=== PATIENT | female | born 2000 | race American Indian/Alaskan Native ===

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

== ENCOUNTER 2022-03-27 14:00 | Emergency (ER) | payer MEDICAID, OTHER ==
[2022-03-27] MEDS ORDERED: Sodium Chloride 0.9% 10 ML Syringe FLUSH PRN (14:29)
[2022-03-27] MEDS ORDERED: Sodium Chloride 0.9% 1,000 ML IV ONE (14:30)
[2022-03-27 16:37] VITALS: BP 100/59; PULSE 78
== END 2022-03-27 17:43 | disposition home or self-care (01) ==
LOC: JP.ED 14:00
DX: O20.0 Threatened abortion (principal); Z3A.14 14 weeks gestation of pregnancy
CPT/HCPCS: 36415; 76815; 80048; 84703; 85025; 85610; 85730; 86850; 86900; 86901; 99282; 99284-25

== ENCOUNTER 2022-06-19 11:44 | Emergency (ER) | payer MEDICAID ==
[2022-06-19 12:03] VITALS: BP 111/71; PULSE 81
== END 2022-06-19 12:49 | disposition home or self-care (01) ==
LOC: JP.ED 11:44
DX: Z03.823 Encounter for observation for suspected inserted (injected) foreign body ruled out (principal)
CPT/HCPCS: 99283

== ENCOUNTER 2022-09-16 19:30 | Emergency (ER) | payer MEDICAID ==
[2022-09-16] MEDS ORDERED: Sodium Chloride 0.9% 10 ML Syringe FLUSH PRN (20:38)
[2022-09-16] MEDS ORDERED: Lactated Ringers 1,000 ML IV SCH (20:45)
[2022-09-16 21:41] LABS: ESTIMATED GFR 94 mL/min (>60)
[2022-09-16 22:12] LABS: CORONAVIRUS COVID-19 NAA NEGATIVE (NEGATIVE)
[2022-09-16] MEDS ORDERED: Acetaminophen 325 MG Tab PO ONE (22:24)
[2022-09-16] MEDS ORDERED: Clindamycin Phosphate in D5W 900 MG in Premix Bag 1 BAG IV ONE ×2 (22:30)
[2022-09-17] MEDS ORDERED: Sodium Chloride 0.9% 1,000 ML IV SCH ×2 (00:30→04:00)
[2022-09-17] MEDS: Ampicillin 2 GM in Sodium Chloride 0.9% 100 ML IV SCH ×2 (00:47→06:48)
[2022-09-17 07:06] VITALS: BP 103/53; PULSE 103
== END 2022-09-17 07:30 ==
LOC: JP.ED 19:30
DX: A41.9 Sepsis, unspecified organism (principal); N71.0 Acute inflammatory disease of uterus; R65.21 Severe sepsis with septic shock; Z20.822 Contact with and (suspected) exposure to COVID-19
CPT/HCPCS: 0241U; 36415; 76801; 80053; 81001; 83605; 84702; 85025; 86850; 86900; 86901; 96361; 96365; 96366; 96367; 99285; A9270; J0290; J1580; J3490; J7030; J7120

== ENCOUNTER 2024-02-03 22:37 | Emergency (ER) | payer MEDICAID ==
[2024-02-03 23:21] VITALS: BP 118/83; PULSE 105
[2024-02-03] MEDS ORDERED: Sodium Chloride 0.9% 1,000 ML IV ONE (23:57)
[2024-02-04 00:16] LABS: BASOPHILS ABSOLUTE AUTO 0.05 K/uL (0.00-0.10); BASOPHILS PERCENT AUTO 0.4 % (0.1-1.3); EOSINOPHILS PERCENT AUTO 0.1 % (0.0-5.4); HEMATOCRIT 41.3 % (34.3-46.0); HEMOGLOBIN 13.3 g/dL (11.2-15.5); IMMATURE GRAN ABSOLUTE AUTO 0.05 K/uL (0.00-0.23); IMMATURE GRAN PERCENT AUTO 0.4 % (0.0-0.7); LYMPHOCYTES ABSOLUTE AUTO 2.34 K/uL (0.8-3.3); LYMPHOCYTES PERCENT AUTO 17.3 % (11.4-47.7); MEAN CORPUSCULAR HEMOGLOBIN 26.1 pg (31.6-35.5); MEAN CORPUSCULAR HGB CONC 32.2 g/dL (31.6-35.5); MEAN CORPUSCULAR VOLUME 81.1 fL (81.4-99.0); MONOCYTES ABSOLUTE AUTO 1.43 K/uL (0.20-0.90); MONOCYTES PERCENT AUTO 10.6 % (3.3-12.6); NEUTROPHILS ABSOLUTE AUTO 9.63 K/uL (1.0-7.6); NEUTROPHILS PERCENT AUTO 71.2 % (40.0-78.1); PLATELET COUNT,PLT 221 K/uL (130-375); RED BLOOD CELL COUNT 5.09 M/uL (3.77-5.24); WHITE BLOOD CELL COUNT,WBC 13.5 K/uL (3.2-11.0)
[2024-02-04 00:19] LABS: EOSINOPHILS ABSOLUTE AUTO 0.01 K/uL (0.00-0.40)
[2024-02-04 00:35] LABS: A/G RATIO 0.8 (1.2-2.2); ALANINE AMINOTRANSFERASE,ALT 80 U/L (12-78); ALBUMIN 3.7 g/dL (3.4-5.0); ALKALINE PHOSPHATASE 70 U/L (46-116); ASPARTATE AMNIOTRANSFERASE,AST 32 U/L (15-37); BILIRUBIN TOTAL 0.3 mg/dL (0.2-1.0); BLOOD UREA NITROGEN,BUN 9 mg/dL (7-18); CALCIUM 8.9 mg/dL (8.5-10.1); CARBON DIOXIDE,CO2 24 mmol/L (21-32); CHLORIDE,CL 98 mmol/L (100-108); CREATININE 0.8 mg/dL (0.6-1.0); EST CRCL DRUG DOSING (CG) 96.06 mL/min; ESTIMATED GFR 107 mL/min (>60); GLUCOSE RANDOM 105 mg/dL (74-106); POTASSIUM,K 3.5 mmol/L (3.6-5.2); PROTEIN TOTAL,TP 8.5 g/dL (6.4-8.2); SODIUM,NA 133 mmol/L (140-148)
[2024-02-04 00:38] LABS: ANION GAP 14.5 mmol/L (5.0-14.0)
[2024-02-04 00:55] LABS: CORONAVIRUS COVID-19 NAA NEGATIVE (NEGATIVE); INFLUENZA A NAA NEGATIVE (NEGATIVE); INFLUENZA B NAA NEGATIVE (NEGATIVE); RESPIRATORY SYNCYTIAL VIR NAA NEGATIVE (NEGATIVE)
[2024-02-04] MEDS: Ketorolac 30 MG/ML SDV IM ONE (01:13)
[2024-02-04] MEDS: Penicillin G Benzathine 1,200,000 Units/2 ML Syringe IM ONE (01:48)
== END 2024-02-04 02:02 | disposition home or self-care (01) ==
LOC: JP.ED 22:37
DX: J02.0 Streptococcal pharyngitis (principal); F17.210 Nicotine dependence, cigarettes, uncomplicated
CPT/HCPCS: 0241U; 36415; 80053; 85025; 87651; 96372; 99283; 99284; J0561; J1885

== ENCOUNTER 2025-05-25 01:33 | Emergency (ER) | payer MEDICAID ==
[2025-05-25] MEDS ORDERED: Diphtheria,Pertussis(Acell),Tetanus Vaccine 0.5 ML Syringe IM ONE (01:47)
[2025-05-25] MEDS: Lidocaine 1% with EPINEPHrine 1:100,000 20 ML MDV INJECT ONE (02:30)
[2025-05-25 07:53] VITALS: BP 92/51; PULSE 91
== END 2025-05-25 08:02 | disposition home or self-care (01) ==
LOC: JP.ED 01:33
DX: S51.812A Laceration without foreign body of left forearm, initial encounter (principal); S93.602A Unspecified sprain of left foot, initial encounter; F10.120 Alcohol abuse with intoxication, uncomplicated; Y90.9 Presence of alcohol in blood, level not specified; W26.8XXA Contact with other sharp object(s), not elsewhere classified, initial encounter; Y93.89 Activity, other specified
CPT/HCPCS: 12004; 73630; 99284; J2004

== ENCOUNTER 2025-05-31 19:54 | Emergency (ER) | payer MEDICAID ==
[2025-05-31 22:07] VITALS: BP 128/75; PULSE 81
== END 2025-05-31 22:40 | disposition home or self-care (01) ==
LOC: JP.ED 19:54
DX: L03.114 Cellulitis of left upper limb (principal); K21.9 Gastro-esophageal reflux disease without esophagitis; Z79.899 Other long term (current) drug therapy
CPT/HCPCS: 99282; 99283